=== PATIENT | female | born 1955 | race Hispanic/Latino ===

== ENCOUNTER 2021-12-21 10:50 | Inpatient (IN) | payer BC, MEDICARE ==
[~2021-12-21] VITALS: Ht 167.6 cm; Wt 95.3 kg
[~2021-12-21 10:50] MED LIST: AMLODIPINE BES2.5 MG PO; GLYBURIDE-METF1 EACH PO; LOSARTAN-HCTZ1 EAC2 PO
[2021-12-21 11:28] LABS: BASOPHILS % 0.5 % (0.0-1.0); EOSINOPHILS # (AUTO) 0.1 (0.0-0.4); HEMATOCRIT 47.5 % (34.2-44.1); HEMOGLOBIN 15.7 g/dL (12.0-16.0); LYMPHOCYTES # (AUTO) 1.9 (1.0-3.2); LYMPHOCYTES % 21.1 % (18.0-39.1); MEAN CORPUSCULAR HEMOGLOBIN 28.6 pg (28-32); MEAN CORPUSCULAR HGB CONC 33.1 g/dL (31-35); MEAN CORPUSCULAR VOLUME 86.5 fL (81-99); MONOCYTES # (AUTO) 0.6 (0.2-0.8); MONOCYTES % 6.7 % (4.4-11.3); NEUTROPHILS # (AUTO) 6.2 (2.1-6.9); NEUTROPHILS % 70.2 % (38.7-80.0); PLATELET COUNT 200 x10e3/uL (140-360); RED BLOOD COUNT 5.49 x10e6/uL (3.6-5.1); RED CELL DISTRIBUTION WIDTH 12.9 % (11.7-14.4)
[2021-12-21 11:44] LABS: INR 0.99
[2021-12-21 11:45] LABS: PARTIAL THROMBOPLASTIN TIME 32.8 seconds (23.8-35.5)
[2021-12-21 11:50] LABS: ALBUMIN 3.8 g/dL (3.5-5.0); ALBUMIN/GLOBULIN RATIO 0.8 (0.8-2.0); ANION GAP 13.7 mmol/L (8-16); CALCIUM 10.3 mg/dL (8.4-10.2); CREATININE, SERUM 0.93 mg/dL (0.57-1.11); POTASSIUM 3.7 mmol/L (3.5-5.1)
[2021-12-21 12:06] LABS: CLARITY,URINE CLOUDY (CLEAR); COLOR,URINE YELLOW (YELLOW); LEUKOCYTE ESTERASE ,URINE TRACE (NEGATIVE); NITRITE,URINE NEGATIVE (NEGATIVE); PROTEIN,URINE DIPSTICK 1+ (NEGATIVE)
[2021-12-21 12:07] LABS: KETONES,URINE TRACE (NEGATIVE); URINE UROBILINOGEN 0.2 mg/dL (0.2 - 1)
[2021-12-21] MEDS ORDERED: IOPAMIDOL 370 MG/ML 100 ML INFUS..BTL INJ ONE (12:18)
[2021-12-21 12:20] LABS: BACTERIA,URINE MANY /HPF; EPITHELIAL CELLS,URINE MODERATE /LPF; RBC,URINE 0-5 /HPF (0-5); TRANSITIONAL EPI CELLS,URINE FEW
[2021-12-21] MEDS ORDERED: Vancomycin IV 1 GM in SODIUM CHLORIDE 0.9% 250ML 250 ML IV ONE (15:15)
[2021-12-21] MEDS ORDERED: HYDROCODONE/APAP 5MG-325MG TAB PO PRN (15:15)
[2021-12-21] MEDS ORDERED: ONDANSETRON HCL INJ 2MG/ML 2ML 2 MG/ML VIAL IV PRN ×2 (15:15→15:30)
[2021-12-21] MEDS ORDERED: DIPHENHYDRAMINE HCL 25 MG CAP PO PRN (15:15)
[2021-12-21] MEDS ORDERED: ALBUTEROL/IPRATROPIUM 3 ML NEB NEB PRN (15:15)
[2021-12-21] MEDS ORDERED: BENZONATATE 100 MG CAP PO PRN (15:15)
[2021-12-21] MEDS ORDERED: DOCUSATE SODIUM 100 MG CAP PO PRN (15:15)
[2021-12-21] MEDS ORDERED: HYDRALAZINE HCL 20 MG/ML VIAL IV PRN (15:15)
[2021-12-21] MEDS ORDERED: ACETAMINOPHEN 325 MG TAB PO PRN (15:15)
[2021-12-21] MEDS ORDERED: DEXTROSE 5%/0.9% SOD CHL 1,000 ML IV SCH (15:15)
[2021-12-21] MEDS ORDERED: LIDOCAINE 4% PATCH TP PRN (15:15)
[2021-12-21] MEDS ORDERED: MELATONIN 5 MG TABLET PO PRN (15:15)
[2021-12-21] MEDS ORDERED: DEXTROSE 50% SYRINGE 50 ML IV PRN (15:15)
[2021-12-21] MEDS ORDERED: POTASSIUM CHLORIDE 20 MEQ TAB CR PO PRN (15:15)
[2021-12-21] MEDS ORDERED: SIMETHICONE 80 MG CHEW PO PRN (15:15)
[2021-12-21] MEDS ORDERED: Morphine 2mg Syringe 2 MG/ML SYR IV PRN (15:30)
[2021-12-21 16:57] VITALS: BP 141/86
[2021-12-21] MEDS ORDERED: LOSARTAN POTAS100 MG PO (17:51)
[2021-12-21] MEDS ORDERED: AMLODIPINE BESYL5 MG PO (17:51)
[2021-12-21 20:00] VITALS: BP 123/88
[2021-12-21 21:00] VITALS: BP 123/88
[2021-12-21] MEDS ORDERED: Vancomycin IV 1 GM in SODIUM CHLORIDE 0.9% 250ML 250 ML IV SCH (23:00)
[2021-12-22] VITALS (8 sets, daily range): BP systolic 96–141; BP diastolic 61–83
[2021-12-22] MEDS ORDERED: BENZONATATE 100 MG CAP PO PRN (01:45)
[2021-12-22] MEDS ORDERED: ACETAMINOPHEN 325 MG TAB PO PRN (01:45)
[2021-12-22] MEDS ORDERED: DEXTROSE 5%/0.9% SOD CHL 1,000 ML IV SCH (01:45)
[2021-12-22] MEDS ORDERED: ALBUTEROL/IPRATROPIUM 3 ML NEB NEB PRN (01:45)
[2021-12-22] MEDS: DEXTROSE 5%/0.9% SOD CHL 1,000 ML IV SCH ×3 (01:50→21:40)
[2021-12-22] MEDS ORDERED: HYDROCODONE/APAP 5MG-325MG TAB PO PRN (02:00)
[2021-12-22] MEDS ORDERED: LIDOCAINE 4% PATCH TP PRN (02:00)
[2021-12-22] MEDS ORDERED: DIPHENHYDRAMINE HCL 25 MG CAP PO PRN (02:00)
[2021-12-22] MEDS ORDERED: DEXTROSE 50% SYRINGE 50 ML IV PRN (02:00)
[2021-12-22] MEDS ORDERED: ONDANSETRON HCL INJ 2MG/ML 2ML 2 MG/ML VIAL IV PRN ×2 (02:00)
[2021-12-22] MEDS ORDERED: SIMETHICONE 80 MG CHEW PO PRN (02:00)
[2021-12-22] MEDS ORDERED: DOCUSATE SODIUM 100 MG CAP PO PRN (02:00)
[2021-12-22] MEDS ORDERED: HYDRALAZINE HCL 20 MG/ML VIAL IV PRN (02:00)
[2021-12-22] MEDS ORDERED: MELATONIN 5 MG TABLET PO PRN (02:00)
[2021-12-22] MEDS ORDERED: POTASSIUM CHLORIDE 20 MEQ TAB CR PO PRN (02:00)
[2021-12-22] MEDS ORDERED: Morphine 2mg Syringe 2 MG/ML SYR IV PRN (02:00)
[2021-12-22] MEDS ORDERED: Vancomycin IV 1 GM in SODIUM CHLORIDE 0.9% 250ML 250 ML IV SCH (04:30)
[2021-12-22] MEDS: PANTOPRAZOLE SOD 40 MG TABEC PO SCH ×2 (06:03→13:56)
[2021-12-22] MEDS ORDERED: PANTOPRAZOLE SOD 40 MG TABEC PO SCH (07:30)
[2021-12-22] MEDS: METRONIDAZOLE 500MG/NS 100ML 100 ML IV SCH ×2 (14:02→21:40)
[2021-12-22] MEDS: CEFEPIME 2 GM in SODIUM CHLORIDE 0.9% 100 ML IV SCH (16:04)
[2021-12-23] VITALS (8 sets, daily range): BP systolic 107–178; BP diastolic 76–97
[2021-12-23] MEDS: METRONIDAZOLE 500MG/NS 100ML 100 ML IV SCH ×3 (05:48→21:52)
[2021-12-23 06:27] LABS: BASOPHILS % 0.7 % (0.0-1.0); EOSINOPHILS # (AUTO) 0.3 (0.0-0.4); EOSINOPHILS % 5.3 % (0.0-6.0); HEMATOCRIT 41.5 % (34.2-44.1); HEMOGLOBIN 13.5 g/dL (12.0-16.0); LYMPHOCYTES # (AUTO) 1.3 (1.0-3.2); LYMPHOCYTES % 23.1 % (18.0-39.1); MEAN CORPUSCULAR HEMOGLOBIN 28.5 pg (28-32); MEAN CORPUSCULAR HGB CONC 32.5 g/dL (31-35); MEAN CORPUSCULAR VOLUME 87.6 fL (81-99); MONOCYTES # (AUTO) 0.4 (0.2-0.8); MONOCYTES % 7.7 % (4.4-11.3); NEUTROPHILS # (AUTO) 3.4 (2.1-6.9); NEUTROPHILS % 62.8 % (38.7-80.0); PLATELET COUNT 180 x10e3/uL (140-360); RED BLOOD COUNT 4.74 x10e6/uL (3.6-5.1); RED CELL DISTRIBUTION WIDTH 12.7 % (11.7-14.4)
[2021-12-23 06:59] LABS: CALCIUM 8.7 mg/dL (8.4-10.2); CREATININE, SERUM 0.82 mg/dL (0.57-1.11)
[2021-12-23] MEDS: DEXTROSE 5%/0.9% SOD CHL 1,000 ML IV SCH (07:45)
[2021-12-23] MEDS: CEFEPIME 2 GM in SODIUM CHLORIDE 0.9% 100 ML IV SCH ×5 (08:00→23:14)
[2021-12-23] MEDS: AMLODIPINE BESYLATE 5 MG TAB PO SCH (09:00)
[2021-12-23] MEDS: LOSARTAN POTASSIUM 100 MG TAB PO SCH (09:00)
[2021-12-24] VITALS (8 sets, daily range): BP systolic 126–145; BP diastolic 73–89
[2021-12-24] MEDS: METRONIDAZOLE 500MG/NS 100ML 100 ML IV SCH ×3 (06:28→21:22)
[2021-12-24] MEDS: PANTOPRAZOLE SOD 40 MG TABEC PO SCH (08:30)
[2021-12-24] MEDS: CEFEPIME 2 GM in SODIUM CHLORIDE 0.9% 100 ML IV SCH ×3 (08:50→23:30)
[2021-12-24] MEDS: AMLODIPINE BESYLATE 5 MG TAB PO SCH (10:04)
[2021-12-24] MEDS: LOSARTAN POTASSIUM 100 MG TAB PO SCH (10:04)
[2021-12-25] VITALS (7 sets, daily range): BP systolic 133–147; BP diastolic 78–99
[2021-12-25] MEDS: METRONIDAZOLE 500MG/NS 100ML 100 ML IV SCH ×3 (05:10→22:00)
[2021-12-25] MEDS ORDERED: SODIUM CHLORIDE 0.9% 250ML 250 ML ONE (06:15)
[2021-12-25] MEDS: PANTOPRAZOLE SOD 40 MG TABEC PO SCH (08:30)
[2021-12-25] MEDS: CEFEPIME 2 GM in SODIUM CHLORIDE 0.9% 100 ML IV SCH ×3 (08:30→23:28)
[2021-12-25] MEDS: AMLODIPINE BESYLATE 5 MG TAB PO SCH (08:31)
[2021-12-25] MEDS: LOSARTAN POTASSIUM 100 MG TAB PO SCH (08:31)
[2021-12-26] VITALS (8 sets, daily range): BP systolic 126–144; BP diastolic 72–96
[2021-12-26] MEDS: METRONIDAZOLE 500MG/NS 100ML 100 ML IV SCH ×3 (05:14→21:10)
[2021-12-26 05:57] LABS: HEMATOCRIT 40.9 % (34.2-44.1); HEMOGLOBIN 13.5 g/dL (12.0-16.0)
[2021-12-26 06:15] LABS: ANION GAP 10.9 mmol/L (8-16); CREATININE, SERUM 0.83 mg/dL (0.57-1.11); POTASSIUM 3.9 mmol/L (3.5-5.1)
[2021-12-26] MEDS: LOSARTAN POTASSIUM 100 MG TAB PO SCH (09:41)
[2021-12-26] MEDS: CEFEPIME 2 GM in SODIUM CHLORIDE 0.9% 100 ML IV SCH ×3 (09:41→23:53)
[2021-12-26] MEDS: AMLODIPINE BESYLATE 5 MG TAB PO SCH (09:41)
[2021-12-26] MEDS: PANTOPRAZOLE SOD 40 MG TABEC PO SCH (09:41)
[2021-12-27] VITALS: BP 115/80
[2021-12-27 04:00] VITALS: BP 120/80
[2021-12-27] MEDS: METRONIDAZOLE 500MG/NS 100ML 100 ML IV SCH (05:01)
[2021-12-27 08:09] VITALS: BP 128/88
[2021-12-27] MEDS: CEFEPIME 2 GM in SODIUM CHLORIDE 0.9% 100 ML IV SCH (08:10)
[2021-12-27] MEDS: PANTOPRAZOLE SOD 40 MG TABEC PO SCH (08:10)
[2021-12-27 08:21] VITALS: BP 128/88
[2021-12-27] MEDS: AMLODIPINE BESYLATE 5 MG TAB PO SCH (09:43)
[2021-12-27] MEDS: LOSARTAN POTASSIUM 100 MG TAB PO SCH (09:43)
[2021-12-27 12:04] VITALS: BP 154/92
== END 2021-12-27 14:30 | disposition home health service (06) | DRG 378 ==
LOC: ER 13:47 → ERHOLD 15:26 → ER 17:07 → MED/SURG3 18:41
PROVIDERS: ADMIT Internal Medicine; ATTEND Internal Medicine
PROC: 02HV33Z Insertion of Infusion Device into Superior Vena Cava, Percutaneous Approach (ICD-10-PCS; principal; 2021-12-23)
DX: K57.21 Diverticulitis of large intestine with perforation and abscess with bleeding (principal); N39.0 Urinary tract infection, site not specified; I10 Essential (primary) hypertension; E11.9 Type 2 diabetes mellitus without complications; K76.0 Fatty (change of) liver, not elsewhere classified; E66.01 Morbid (severe) obesity due to excess calories; Z68.33 Body mass index [BMI] 33.0-33.9, adult; Z96.652 Presence of left artificial knee joint; Z90.49 Acquired absence of other specified parts of digestive tract; Z20.822 Contact with and (suspected) exposure to COVID-19
CPT/HCPCS: 36415; 36569; 71045; 74177; 80048; 80053; 81001; 84484; 85014; 85018; 85025; 85610; 85730; 86850; 86900; 93005; 94799; 99284; J0692; J1335; J2270; J2543; J3370; J7042; J7050; Q9967; U0002

== ENCOUNTER → 2022-11-17 | Day surgery (SDC) | payer BC, MEDICARE ==
[2022-11-14 08:30] LABS: BASOPHILS # (AUTO) 0.1 (0.0-0.1); BASOPHILS % 1.1 % (0.0-1.0); EOSINOPHILS # (AUTO) 0.3 (0.0-0.4); EOSINOPHILS % 5.3 % (0.0-6.0); HEMATOCRIT 42.8 % (34.2-44.1); HEMOGLOBIN 14.1 g/dL (12.0-16.0); LYMPHOCYTES # (AUTO) 1.6 (1.0-3.2); LYMPHOCYTES % 34.5 % (18.0-39.1); MEAN CORPUSCULAR HEMOGLOBIN 27.9 pg (28-32); MEAN CORPUSCULAR HGB CONC 32.9 g/dL (31-35); MEAN CORPUSCULAR VOLUME 84.8 fL (81-99); MONOCYTES # (AUTO) 0.3 (0.2-0.8); MONOCYTES % 6.7 % (4.4-11.3); NEUTROPHILS # (AUTO) 2.5 (2.1-6.9); NEUTROPHILS % 52.2 % (38.7-80.0); PLATELET COUNT 179 x10e3/uL (140-360); RED BLOOD COUNT 5.05 x10e6/uL (3.6-5.1); RED CELL DISTRIBUTION WIDTH 12.7 % (11.7-14.4)
[2022-11-14 08:47] LABS: CALCIUM 9.3 mg/dL (8.4-10.2); CREATININE, SERUM 0.84 mg/dL (0.57-1.11)
[~2022-11-17] MED LIST changes: +AMLODIPINE BESYL5 MG PO; +BALANCED SALT SOLN (OPTH) 15 ML BTL IO ONE; +BUPIVACAINE HC 0.75% PF 10ML VIAL INJ ONE; +CYCLOPENTOLATE HCL 2% OPTH SOLN 2 ML BTL OP ONE; +EPINEPHRINE HCL 1:1000 1ML 1 MG/ML AMP ONE; +FENTANYL CITRATE/PF 100MCG/2 ML INJ ONE; +GATIFLOXACIN(OPTH) 5 ML LIQD ONE; +LACTATED RINGER'S 1,000 ML ONE; +LIDOCAINE HCL 2% LOCAL INJ 5 ML SDV VIAL INJ ONE; +LIDOCAINE HCL-PF 4% 40 MG/1 ML 5ML AMP ONE; +LOSARTAN POTAS100 MG PO; +MIDAZOLAM HCL 2 MG/2 ML VIAL ONE; +PHENYLEPHRINE HCL 2 ML DROPS ONE; +PILOCARPINE HCL(OPTH) 15 ML LIQD ONE; +POVIDONE IODINE 0.05% 0.05 % ML PO ONE; +POVIDONE IODINE 5% (OPTH) 30 ML BTL ONE; +PROPOFOL IV EMULSION 10 MG/ML 20 ML VIAL ONE; +TOBRAMYCIN/DEXAMETHASONE(OPTH) 3.5 GM TUBE ONE
[2022-11-17 09:52] VITALS: BP 138/92
== END | disposition home or self-care (01) ==
LOC: OR 07:21
PROVIDERS: ATTEND Ophthalmology
DX: H25.12 Age-related nuclear cataract, left eye (principal); I10 Essential (primary) hypertension; Z01.810 Encounter for preprocedural cardiovascular examination; Z01.812 Encounter for preprocedural laboratory examination; Z79.899 Other long term (current) drug therapy
CPT/HCPCS: 36415 ×2; 66984; 80048; 82948; 85025; 93005; J0171; J2001; J2250; J2704; J3010; J7121; V2632